=== PATIENT | male | born 1955 | race Caucasian/White ===

== ENCOUNTER 2019-10-20 07:00 | Outpatient (CLI) | payer MEDICARE, SELFPAY ==
--- NOTE | 2019-10-20 07:22 | ECG_ITS ---
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 Interpretive Statements NAME OF STUDY: EXERCISE SESTAMIBI STRESS TEST INDICATION: Chest Pain Baseline blood pressure of 143/103 mm Hg, heart rate of 76 beats per minute and oxygen saturation of 98%. EKG showed normal sinus rhythm, normal axis with normal ST-Ts. The patient exercised for 5 minutes 2 seconds on a standard Elmer protocol. Patient attained a maximum heart rate of 135 beats per minute(86 % of the maximum predicted heart rate) with a blood pressure at the peak exercise of 188/99 mm Hg and oxygen saturation 96%. The EKG at the peak exercise revealed sinus tachycardia with no significant ST-T wave changes. Patient did not have any chest pain or any significant arrhythmis with the exercise During the recovery phase, there were no new changes. Blood pressure at the end of the recovery phase was 166/106 mm Hg with a heart rate of 102 beats per minute and oxygen saturation 97%. CONCLUSION: 1. Normal EKG response to treadmill exercise. 2. No exercise-induced chest pain or cardiac arrhythmia 3. Decreased exercise tolerance, attained a maximum of 7 METs. Maximum VO2 of 24.5 mL/kg/min. 4. Baseline hypertension with normal response to exercise. 5. Perfusion scan will be documented separately. Electronically Signed On 10-20-2019 14:28:38 CDT by Zoey Koch M.D. [id number]
--- NOTE | 2019-10-20 07:22 | NMCV_ITS ---
NM charu perf SPECT r/s* [id number] Peewee Phillips Age: 63 Gender: M : 1955 Exam Date: 10/20/2019 08:10 Ordering Phys: Canelo Boone Technologist: PARAM West Exam Location: [facility] Indications: CHEST PAIN STRESS TEST [facility] IMAGE PROTOCOL Rest/Stress 1 Radiopharmaceutical Dose (mCi) Administration Site Administered by Rest: Tc-99m 10.9 IV PARAM Ramirez Sestamibi Stress:Tc-99m 32.9 IV PARAM West Sestamimyron Rest: 20-Oct-2019 60 Discovery 630 Stress: 20-Oct-2019 30 Discovery 630 Radiopharmaceutical was injected at 85 % maximum heart rate. Images obtained in supine and prone position. SPECT RESULTS Technical Quality: Excellent Raw Data Analysis: Normal Image Corrections: No attenuation or motion correction applied Summed Stress Score: 0 Summed Rest Score: 1 Summed Difference Score: 0 PERFUSION FINDINGS Very small size perfusion abnormality of mild severity of mid inferior wall with improved tracer uptake on stress images. This is suggestive of attenuation artifact. FUNCTIONAL RESULTS (calculated via Gated SPECT) Stress Image LV EF (%): 52 Stress EDV (mL):85 TID: 1.05 Stress ESV (mL):41 FUNCTIONAL FINDINGS: The left ventricle is normal in size. Transient Ischemia Dilatation of 1.1. There is normal left ventricular systolic function. The left ventricular ejection fraction is normal with a value of 52%. There is normal left ventricular wall thickening. Normal end-diastolic and end-systolic volumes. IMPRESSIONS 1. Myocardial perfusion imaging is normal. 2. Overall left ventricular systolic function is normal without regional wall motion abnormalities. 3. The left ventricular ejection fraction is normal with a value of 52%. 4. This study suggests a low likelihood of angiographically significant coronary artery disease. 5. EKG portion of the study will be reported separately. Zoey Koch MD (Electronically Signed) Final Date: 20 October 2019 14:32 S
[2019-10-20 07:23] VITALS: BMI 26.4
[2019-10-20 09:16] VITALS: BP 166/106; PULSE 96
== END 2019-10-20 07:01 | disposition home or self-care (01) ==
LOC: RAD 07:01
PROVIDERS: PCP Physician Assistant Medical; Visit Provider Family Medicine
DX: R07.9 Chest pain, unspecified (principal)
CPT/HCPCS: 78452; 93017; A9500

== ENCOUNTER → 2021-08-25 10:01 | Outpatient (BNVA) | payer MEDICARE, SELFPAY | PROVIDERS: PCP Nurse Practitioner Family; Visit Provider Surgery | DX: R10.30 Lower abdominal pain, unspecified (principal) | CPT/HCPCS: 99203 ==

== ENCOUNTER 2021-10-24 06:00 | Day surgery (SDC) | payer MEDICARE, MEDICAID, SELFPAY ==
[2021-10-22 08:26] VITALS: BMI 19.5
--- NOTE | 2021-10-24 06:15 | P.HP_ITS ---
Same Day Surgery H&P Indication for Procedure/HPI DATE OF PROCEDURE: October 24, 2021 CHIEF COMPLAINT/INDICATIONFOR SURGICAL PROCEDURE: Abdominal pain PREOP DIAGNOSIS: Lower abdominal pain PLANNED PROCEDURE: Operation Date: 10/24/21 07:00 Proposed Procedures p Colonoscopy 05980/R10.9(Not Applicable) - Ibrahima Campos MD 08/25/2021 This is a pleasant 65 years old gentleman comes today to my practice with history of lower abdominal pain, per primary care provider note that shows right lower quadrant abdominal pain and on the working diagnosis of the CT scan of the abdomen pelvis that was obtained it describes left lower abdominal pain is the indication of the CT scan.? Patient reports currently no pain and the CT scan did show fatty liver and right kidney stones, patient comes today escorted by one of his neighbors and he does not give much of a history and apparently his legal guardian is Mr. Chong Harmon.? Patient is referred to me for further evaluation and potential diagnostic colonoscopy.? There is no evidence of bleeding per rectum or history of colon cancer and patient had a previous colonoscopy and it does not show per records what were the findings. CT scan of the abdomen pelvis was done back in May 2021 concerning for diverticulitis. Interim history 10/24/2021 Patient comes today for diagnostic colonoscopy and informed consent is obtained from Chong Harmon legal guardian,over the phone ROS All systems have been reviewed negative except as for the above or per problem list. Medications/Allergies* Home Medications Medication Instructions Recorded Confirmed Type baclofen 10 mg tablet 10 mg PO TID 08/25/21 10/24/21 History diclofenac sodium 75 mg 75 mg PO BID 08/25/21 10/24/21 History tablet,delayed release dicyclomine 10 mg capsule 10 mg PO QID 08/25/21 10/24/21 History gabapentin 100 mg capsule 100 mg PO TID 08/25/21 10/24/21 History hydrochlorothiazide 12.5 mg tablet 12.5 mg PO DAILY 08/25/21 10/24/21 History hydrocortisone 1 % topical cream 1 applic [place] TID g 08/25/21 10/24/21 History with perineal applicator ibuprofen 400 mg tablet 400 mg PO Q6H 08/25/21 10/24/21 History insulin glargine 100 unit/mL 10 unit SUBCUT DAILY ml 08/25/21 10/24/21 History subcutaneous solution (Lantus U-100 Insulin) olmesartan 40 mg tablet (Benicar) 40 mg PO DAILY 08/25/21 10/24/21 History simvastatin 20 mg tablet 20 mg PO DAILY 08/25/21 10/24/21 History Allergies/Adverse Reactions Allergy/AdvReac Type Severity Reaction Status Date / Time latex Allergy Unknown ALGY-Rash Verified 10/24/21 07:22 Penicillins Allergy Unknown ALGY-Rash Verified 10/24/21 07:22 Pertinent History/Comorbid Conditions* Social History Smoking and tobacco status: never smoked Pertinent Exam Findings alert, regular rate & rhythm and procedure specific exam findings (Abdominal examination nontender nondistended soft) Recommendations Surgery/Procedure today (Colonoscopy with possible biopsy) Coding Level of Care Code Acute 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
[2021-10-24 06:23] VITALS: BP 154/108; PULSE 98; RESP 18; TEMP 36.2; O2SAT 97
--- NOTE | 2021-10-24 07:46 | ANES.PREANE2 ---
Pre-Anesthetic Assessment Height/Weight: Height 1.7 m Weight 56.699 kg Temp Pulse Resp BP Pulse Ox 97.1 F L 98 18 154/108 97 10/24/21 06:23 10/24/21 06:23 10/24/21 06:23 10/24/21 06:23 10/24/21 06:23 Preop Diagnosis: Lower abdominal pain Operation Date: 10/24/21 07:00 Proposed Procedures p Colonoscopy 12392/R10.9(Not Applicable) - Ibrahima Campos MD Familial anesthetic complications: None Was Beta Suzette taken within 24 hours: N/A Was Clonidine taken within 24 hours: N/A Last intake: Intake Last Liquid Date 10/23/21 Last Liquid Time 20:00 Last Solid Date 10/23/21 Last Solid Time 10:00 Social No alcohol and No tobacco Exam alert, oriented x 3 and regular rate & rhythm diminished breath sounds on right Airway Submandibular: within normal limits Cervical ROM: Other (Limited ROM) Mallampati: Class IV Comments: Comments: Missing upper lateral left incisor, poor dentition History/ROS No significant complaints Pulmonary None reported CV/HEM Hypertension None reported Hepatic None reported GI Gastroesophageal Reflux Disease Metabolic Diabetes Mellitus and None reported abdominal paint Musc/skel None reported Anesthetic Plan ASA status: 2 Anesthesia: Anesthesia Evaluation and MAC Risk of > 500 ml blood loss (7ml/kg in children): No Medications/Allergies Home Medications Medication Instructions Recorded Confirmed Last Taken Type baclofen 10 mg tablet 10 mg PO TID 08/25/21 10/24/21 10/23/21 History diclofenac sodium 75 mg 75 mg PO BID 08/25/21 10/24/21 Unknown History tablet,delayed release dicyclomine 10 mg capsule 10 mg PO QID 08/25/21 10/24/21 10/22/21 History gabapentin 100 mg capsule 100 mg PO TID 08/25/21 10/24/21 10/22/21 History hydrochlorothiazide 12.5 mg tablet 12.5 mg PO DAILY 08/25/21 10/24/21 10/22/21 History hydrocortisone 1 % topical cream 1 applic [place] TID g 08/25/21 10/24/21 Unknown History with perineal applicator ibuprofen 400 mg tablet 400 mg PO Q6H 08/25/21 10/24/21 Unknown History insulin glargine 100 unit/mL 10 unit SUBCUT DAILY ml 08/25/21 10/24/21 10/23/21 History subcutaneous solution (Lantus U-100 Insulin) olmesartan 40 mg tablet (Benicar) 40 mg PO DAILY 08/25/21 10/24/21 10/22/21 History simvastatin 20 mg tablet 20 mg PO DAILY 08/25/21 10/24/21 10/22/21 History Allergies Allergy/AdvReac Type Severity Reaction Status Date / Time latex Allergy Unknown ALGY-Rash Verified 10/24/21 07:22 Penicillins Allergy Unknown ALGY-Rash Verified 10/24/21 07:22 PFS Anesthesia Social History Smoking and tobacco status: never smoked Data Anesthesia Cardiac Studies: Sestamibi Stress Test (Cardiology) 10/20/19
[2021-10-24] MEDS: sodium chloride 0.9% 1,000 ML 30 ML IV (08:19)
[2021-10-24 09:07] VITALS: BP 124/82; PULSE 76; RESP 16; TEMP 36.2; O2SAT 93
[2021-10-24 09:16] VITALS: BP 124/96; PULSE 80; RESP 16; O2SAT 95
--- NOTE | 2021-10-24 11:53 | ANE.PACU2 ---
Inpatient post-anesthesia follow up: Airway intact: Yes Vital signs: Temperature 97.2 F Pulse Rate 80 Respiratory Rate 16 Blood Pressure 124/96 Pulse Oximetry 95 Oxygen Delivery Me thod Room Air Oxygen Flow Rate 3 Fraction of Inspir ed Oxygen Hydration adequate: Yes Nausea and vomiting: No Pain level: 1 Mental status: Baseline
== END 2021-10-24 09:33 | disposition home or self-care (01) ==
PROVIDERS: PCP Nurse Practitioner Family; Visit Provider Surgery
PROC: 0DJD8ZZ Inspection of Lower Intestinal Tract, Via Natural or Artificial Opening Endoscopic (ICD-10-PCS; CPT 45378; principal; 2021-10-24 07:00)
DX: R10.9 Unspecified abdominal pain (principal); I10 Essential (primary) hypertension; K21.9 Gastro-esophageal reflux disease without esophagitis; E11.9 Type 2 diabetes mellitus without complications
CPT/HCPCS: 45378; J2704; J7030

== ENCOUNTER → 2021-12-26 10:09 | Outpatient (BNVA) | payer MEDICARE, SELFPAY | PROVIDERS: PCP Nurse Practitioner Family; Referring Provider Nurse Practitioner Family; Visit Provider Nurse Practitioner Family | DX: M25.512 Pain in left shoulder (principal) | CPT/HCPCS: 99213; 99214 ==

== ENCOUNTER 2022-11-17 12:42 | Emergency (ER) | payer MEDICARE, MEDICAID, SELFPAY ==
[2022-11-17 12:44] VITALS: BP 137/89; PULSE 87; RESP 18; TEMP 36.9; O2SAT 92; BMI 31.3
--- NOTE | 2022-11-17 12:48 | ECG_ITS ---
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 Measurements Intervals [place] Rate: 88 P: 24 WI: 160 QRS: 13 QRSD: 88 T: 17 QT: 352 QTc: 427 Interpretive Statements SINUS RHYTHM Compared to ECG 11/23/2016 15:11:57 No significant changes Electronically Signed On 11-17-2022 20:12:53 CDT by Zoey Koch M.D. [email or web address] river county hospitalApptimizeuniversity hospitals par[email or web address]/store/NU/[id number] f
--- NOTE | 2022-11-17 12:48 | XRR_ITS ---
PROCEDURE INFORMATION: Exam: XR Chest Exam date and time: 11/17/2022 1:08 PM Age: 66 years old Clinical indication: Pain; Angina pectoris; Additional info: Chest pain TECHNIQUE: Imaging protocol: Radiologic exam of the chest. Views: 1 view. COMPARISON: 1. CR XR chest 1V [id number] 11/23/2016 12:33 PM 2. CR XR chest 2V* [id number] 06/23/2016 12:55 PM 3. CR XR chest 1V [id number] 05/18/2016 8:55 AM FINDINGS: Lungs: Pulmonary hypoinflation with bronchovascular crowding. Mild bibasilar atelectasis. Hazy increased attenuation at the left lower lung zone with preservation of the hemidiaphragm. Pulmonary vascular congestion. Pleural spaces: Unremarkable. No pleural effusion. No pneumothorax. Heart/Mediastinum: Widening of the cardiomediastinal silhouette. Bones/joints: Unremarkable. XR/XR chest 1V portable [id number] IMPRESSION: 1. Hazy left lower lung zone increased attenuation that may represent atelectasis or developing pneumonia. 2. Widening of the cardiomediastinal silhouette and pulmonary vascular congestion may be on the basis of pulmonary hypoinflation and AP technique.
--- NOTE | 2022-11-17 13:00 | PC.NURSE ---
Dr ordered asprin to be given. after documenting pt stated he already took asprin. Uncharted the asprin and wasted the medication.
[2022-11-17 13:05] LABS: Basophils # 0.1 10^3/uL (0.0-0.1); Basophils % 0.6 %; Eosinophils # 0.2 10^3/uL (0.0-0.8); Eosinophils % 2.2 %; Hematocrit 41.3 % (42.0-52.0); Hemoglobin 13.7 g/dL (11.7-16.6); Lymphocytes # 3.1 10^3/uL (0.8-4.8); Lymphocytes % 36.3 %; Mean Corpuscular HGB Conc 33.2 g/dL (30.0-36.0); Mean Corpuscular Hemoglobin 29.8 pg (28.0-34.0); Mean Platelet Volume 11.4 fL (7.4-10.4); Monocytes # 0.7 10^3/uL (0.2-0.9); Monocytes % 7.8 %; Neutrophils # 4.45 10^3/uL (1.8-7.7); Neutrophils % 52.6 %; Nucleated Red Blood Cells % 0 %; Platelet Count 202 10^3/cmm (130-400); Red Blood Count 4.59 10^6/uL (4.1-5.3); Red Cell Distribution Width 14.4 % (12.1-15.1); White Blood Count 8.5 10^3/uL (4.0-10.0)
[2022-11-17 13:20] VITALS: BP 137/89; PULSE 86; RESP 18; O2SAT 97
[2022-11-17 13:33] LABS: Alanine Aminotransferase 52 U/L (0-41); Albumin Level 4.7 g/dL (3.5-5.2); Alkaline Phosphatase 81 U/L (40-130); Anion Gap 17.4 (5-19); Aspartate Amino Transferase 32 U/L (0-40); Blood Urea Nitrogen 19 mg/dL (8-23); Calcium 9.4 mg/dL (8.5-10.5); Carbon Dioxide 23 mmol/L (22-29); Chloride 106 mmol/L (98-107); Creatinine Clr Calc Pharmacy 85.5578; Globulin 2.5 g/dL (1.3-4.6); Glomerular Filtration Rate 84.2 mL/min (90-130); Glucose 184 mg/dL (65-115); Osmolality Calculated 301 mOsm/kg (285-295); Potassium 4.4 mmol/L (3.5-5.1); Sodium 142 mmol/L (136-145); Total Bilirubin 0.4 mg/dL (0.15-1.2); Total Protein 7.2 g/dL (6.6-8.7)
[2022-11-17 13:35] LABS: Troponin(5th) Baseline 17 ng/L (0-15)
--- NOTE | 2022-11-17 14:11 | ED_ITS ---
HPI - Chest Pain General: Chief Complaint: Chest Pain Stated Complaint: Chest Pain Time Seen by Provider: 11/17/22 12:45 Source: patient Mode of arrival: ambulatory History of Present Illness: 66-year-old male presents emergency room complaint of chest pain that began around noon and is intermittent. Pain has resolved by the time he arrived here. He was given nitro and aspirin in route. No radiation of the pain no associate d shortness of breath. No diaphoresis. MD complaint: chest pain Onset (ago): hour(s) Timing of current episode: episodic Prior episodes: Yes Onset: during rest Pain location: substernal Pain radiation: none Quality: tightness and aching Relieving factors: nothing Exacerbating factors: nothing Associated symptoms: Deny abdominal pain, diaphoresis, dyspnea, fever(s), leg edema, nausea, palpitations, sense of impending doom, syncope or vomiting Treatment prior to arrival: none Review of Systems Const: Denies: fever(s) or diaphoresis ENMT: Denies: throat pain, ear or mastoid pain, nasal discharge or nasal congestion Card: Denies: palpitations or syncope Resp: Denies: dyspnea GI: Denies: abdominal pain, nausea or vomiting : Denies: flank pain, dysuria, urinary frequency or urinary urgency Skin/Breast: Denies: rash or pruritus PFSH ED PFSH: Social History Smoking and tobacco status: never smoked Physical Exam Const: COMMON NORMALS: no acute distress GENERAL APPEARANCE: cooperative and comfortable ORIENTATION/CONSCIOUSNESS: Yes awake, Yes oriented to person, Yes oriented to place and Yes oriented to time HENMT: COMMON NORMALS: normocephalic, atraumatic and hearing grossly normal bilaterally HEAD & SCALP: normocephalic and atraumatic Resp: COMMON NORMALS: normal respiratory effort, No retractions, No use of ac cessory muscles and clear to auscultation bilaterally AUSCULTATION: clear to auscultation bilaterally Cardio: COMMON NORMALS: regular rate, regular rhythm and No murmurs present (Cardio) RATE: regular rate RHYTHM: regular rhythm GI: COMMON NORMALS: Soft to palpation and No hepatosplenomegaly present AUSCULTATION: Yes normoactive bowel sounds PALPATION: Yes Soft to palpation, No Tenderness to palpation present (GI), No Guarding due to palpation present ( GI) and Yes No hepatosplenomegaly present Extremity: COMMON NORMALS: normal to inspection, capillary refill normal, no clubbing, cyanosis or edema, no calf tenderness and no pedal edema Neuro: SENSORIUM/ORIENTATION: Yes oriented to person, Yes oriented to place and Yes oriented to time Skin: COMMON NORMALS: no rashes or lesions noted GENERAL SKIN EXAM: no rashes or lesions noted Course Vital Signs: Vital signs: Vital Signs Temperature 98.4 F 11/17/22 12:44 Pulse Rate 67 11/17/22 19:52 Respiratory Rate 18 11/17/22 19:52 Blood Pressure 156/94 11/17/22 19:52 Pulse Oximetry 99 11/17/22 19:52 Oxygen Delivery Me thod Nasal Cannula 11/17/22 19:30 Oxygen Flow Rate 1.5 11/17/22 19:30 MDM - Chest Pain Medical Decision Making EKG and cardiac enzymes show no acute changes. Patient's symptoms did resolve prior to arrival. He reported pain and already improved before he got the nitro. He denies any fever sweats or chills or cough. Observe for now set up for outpatient stress test return if has further problems. We will start him on isosorbide mononitrate 30 mg daily as well as aspirin return if has recurrent chest pain Medical Records I reviewed the patient's medical records. Lab Data I reviewed the patient's lab results. 11/17/22 12:57 11/17/22 12:57 Radiology Impressions Chest X-Ray 11/17/22 12:48 IMPRESSION: 1. Hazy left lower lung zone increased attenuation that may represent atelectasis or developing pneumonia. 2. Widening of the cardiomediastinal silhouette and pulmonary vascular congestion may be on the basis of pulmonary hypoinflation and AP technique. Laboratory Results WBC 8.5 10^3/uL (4.0-10.0) 11/17/22 12:57 RBC 4.59 10^6/uL (4.1-5.3) 11/17/22 12:57 Hgb 13.7 g/dL (11.7-16.6) 11/17/22 12:57 Hct 41.3 % (42.0-52.0) L 11/17/22 12:57 MCV 90.0 fl (80-94) 11/17/22 12:57 MCH 29.8 pg (28.0-34.0) 11/17/22 12:57 MCHC 33.2 g/dL (30.0-36.0) 11/17/22 12:57 RDW 14.4 % (12.1-15.1) 11/17/22 12:57 Plt Count 202 10^3/cmm (130-400) 11/17/22 12:57 MPV 11.4 fL (7.4-10.4) H 11/17/22 12:57 Neut % (Auto) 52.6 % 11/17/22 12:57 Lymph % (Auto) 36.3 % 11/17/22 12:57 [place] % (Auto) 7.8 % 11/17/22 12:57 Eos % (Auto) 2.2 % 11/17/22 12:57 Baso % (Auto) 0.6 % 11/17/22 12:57 Neut # (Auto) 4.45 10^3/uL (1.8-7.7) 11/17/22 12:57 Lymph # (Auto) 3.1 10^3/uL (0.8-4.8) 11/17/22 12:57 [place] # (Auto) 0.7 10^3/uL (0.2-0.9) 11/17/22 12:57 Eos # (Auto) 0.2 10^3/uL (0.0-0.8) 11/17/22 12:57 Baso # (Auto) 0.1 10^3/uL (0.0-0.1) 11/17/22 12:57 Nucleated RBC % (auto) 0 % 11/17/22 12:57 Nucleated RBCs # 0.0 /100WBC 11/17/22 12:57 Sodium 142 mmol/L (136-145) 11/17/22 12:57 Potassium 4.4 mmol/L (3.5-5.1) 11/17/22 12:57 Chloride 106 mmol/L (98-107) 11/17/22 12:57 Carbon Dioxide 23 mmol/L (22-29) 11/17/22 12:57 Anion Gap 17.4 (5-19) 11/17/22 12:57 BUN 19 mg/dL (8-23) 11/17/22 12:57 Creatinine 0.9 mg/dL (0.7-1.2) 11/17/22 12:57 GFR Calculation 84.2 mL/min (90-130) L 11/17/22 12:57 Glucose 184 mg/dL (65-115) H 11/17/22 12:57 Calculated Osmolality 301 mOsm/kg (285-295) H 11/17/22 12:57 Calcium 9.4 mg/dL (8.5-10.5) 11/17/22 12:57 Total Bilirubin 0.4 mg/dL (0.15-1.2) 11/17/22 12:57 AST 32 U/L (0-40) 11/17/22 12:57 ALT 52 U/L (0-41) H 11/17/22 12:57 Alkaline Phosphatase 81 U/L (40-130) 11/17/22 12:57 Troponin T Baseline 17 ng/L (0-15) H 11/17/22 12:57 Troponin T 120 Minute 13.70 ng/L (0-15) 11/17/22 14:33 Delta Troponin T -3.3 ABS# (0-10) L 11/17/22 14:33 Troponin T Hi Sens 6Hr 13.17 ng/L (0-15) 11/17/22 19:02 Troponin T Hi Sens 6Hr Delta -3.83 ng/L (0-12) L 11/17/22 19:02 Total Protein 7.2 g/dL (6.6-8.7) 11/17/22 12:57 Albumin 4.7 g/dL (3.5-5.2) 11/17/22 12:57 Globulin 2.5 g/dL (1.3-4.6) 11/17/22 12:57 Discharge Plan Discharge Patient Disposition: Home Clinical Impression: Atypical chest pain Condition: Stable Prescriptions: New isosorbide mononitrate 30 mg tablet extended release 24 hr 30 mg PO DAILY Qty: 30 0RF aspirin 81 mg tablet,delayed release (DR/EC) 81 mg PO DAILY Qty: 30 0RF No Action Lantus U-100 Insulin 100 unit/mL solution 15 unit SUBCUT DAILY baclofen 10 mg tablet 10 mg PO TID dicyclomine 10 mg capsule 10 mg PO QID gabapentin 100 mg capsule 100 mg PO TID hydrochlorothiazide 12.5 mg tablet 12.5 mg PO DAILY ibuprofen 400 mg tablet 400 mg PO Q6H olmesartan [Benicar] 40 mg tablet 40 mg PO DAILY simvastatin 20 mg tablet 20 mg PO DAILY metformin 500 mg tablet 500 mg PO BID hydrocodone-acetaminophen 7.5-325 mg tablet 1 tab PO BID PRN (Reason: Pain) levofloxacin 750 mg tablet 750 mg PO DAILY 7 Days Qty: 7 0RF Discharge Orders: Discharge ED (Routine); Ordered 11/17/22 Ordered By: Tanmay Maciel Referrals: Cristiana Garcia FNP [Primary Care Provider] - Patient Instructions: Opioid Safety, Pain Management Activity Restrictions/Additional Instructions: You were seen today for chest pain. Your cardiac enzymes and EKG did not show any acute changes recommend that you take isosorbide mononitrate 30 mg daily and a baby aspirin daily Case management make arrangements for an outpatient stress test. If you have recurrence of symptoms return to the emergency room. Coding Level of Care Code ED Horseradish Grinder for Lori Narvaez
[2022-11-17 14:34] VITALS: BP 137/89; PULSE 73; RESP 18; O2SAT 97
--- NOTE | 2022-11-17 14:48 | ECG_ITS ---
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 Measurements Intervals [place] Rate: 67 P: 31 NC: 173 QRS: 26 QRSD: 87 T: 29 QT: 397 QTc: 421 Interpretive Statements SINUS RHYTHM Compared to ECG 11/17/2022 12:48:33 No significant changes Electronically Signed On 11-17-2022 20:15:46 CDT by Zoey Koch M.D. [email or web address] general [email or web address] medical [facility].[employer]/store/OM/[id number]/[id number]
[2022-11-17 15:11] LABS: Troponin 5 2HR Delta -3.3 ABS# (0-10)
[2022-11-17 16:55] VITALS: BP 137/89; PULSE 69; O2SAT 99
[2022-11-17 19:29] LABS: Troponin 5 6HR 13.17 ng/L (0-15)
[2022-11-17 19:30] VITALS: BP 129/88; PULSE 88; RESP 18; O2SAT 98
[2022-11-17 19:45] LABS: Troponin 5 6HR Delta -3.83 ng/L (0-12)
[2022-11-17 19:52] VITALS: BP 156/94; PULSE 67; RESP 18; O2SAT 99
--- NOTE | 2022-11-18 10:21 | DCPLANNER ---
Addendum entered by Clarissa Trinidad 12/17/22 10:34: Patient did not attend stress test Addendum entered by Clarissa Trinidad 12/09/22 11:30: Patient has a follow up appointment scheduled for Wednesday, December 16, 2022 at 2:00 for a stress test. Original Note: public housing manager had message to schedule an outpatient stress test for patient. public housing manager faxed signed order to centralized scheduling, who will call patient with appointment information.
== END 2022-11-17 19:35 | disposition home or self-care (01) ==
PROVIDERS: Emergency Provider Family Medicine; PCP Nurse Practitioner Family
DX: R07.89 Other chest pain (principal); Z79.84 Long term (current) use of oral hypoglycemic drugs; Z79.4 Long term (current) use of insulin
CPT/HCPCS: 36415; 71045; 80053; 84484; 85025; 93005; 99285

== ENCOUNTER 2022-11-19 10:34 | Emergency (ER) | payer MEDICARE, MEDICAID, SELFPAY ==
--- NOTE | 2022-11-19 10:38 | XR_ITS ---
WS: [id number] Exam: XR chest 1V portable [id number] Date/Time of Exam: 11/19/2022 10:54 AM Reason For Exam: chest pain Comparison 11/17/2022. The heart is enlarged. There appears to be some infiltrate in the lingula along the left heart border . The right lung is clear. No pneumothorax or pleural effusion. The mediastinum is normal in contour. Regional bony structures are intact. XR/XR chest 1V portable [id number] IMPRESSION: 1. Mild infiltrate in the region of the lingula. 2. Cardiac enlargement.
[2022-11-19 10:42] VITALS: BP 154/92; PULSE 99; RESP 18; TEMP 36.9; O2SAT 92
[2022-11-19 10:51] LABS: Basophils % 0.5 %; Eosinophils # 0.1 10^3/uL (0.0-0.8); Eosinophils % 1.9 %; Hemoglobin 13.4 g/dL (11.7-16.6); Lymphocytes # 2.2 10^3/uL (0.8-4.8); Lymphocytes % 34.7 %; Mean Corpuscular HGB Conc 33.5 g/dL (30.0-36.0); Mean Corpuscular Hemoglobin 30.1 pg (28.0-34.0); Mean Corpuscular Volume 89.9 fl (80-94); Mean Platelet Volume 11.3 fL (7.4-10.4); Monocytes # 0.5 10^3/uL (0.2-0.9); Monocytes % 7.8 %; Neutrophils # 3.45 10^3/uL (1.8-7.7); Neutrophils % 54.6 %; Nucleated Red Blood Cells % 0 %; Platelet Count 194 10^3/cmm (130-400); Red Blood Count 4.45 10^6/uL (4.1-5.3); White Blood Count 6.3 10^3/uL (4.0-10.0)
[2022-11-19 11:12] LABS: Alanine Aminotransferase 45 U/L (0-41); Albumin Level 4.5 g/dL (3.5-5.2); Alkaline Phosphatase 82 U/L (40-130); Anion Gap 17.1 (5-19); Aspartate Amino Transferase 32 U/L (0-40); Blood Urea Nitrogen 17 mg/dL (8-23); Calcium 9.4 mg/dL (8.5-10.5); Carbon Dioxide 23 mmol/L (22-29); Chloride 103 mmol/L (98-107); Globulin 2.5 g/dL (1.3-4.6); Glomerular Filtration Rate 84.2 mL/min (90-130); Glucose 148 mg/dL (65-115); Osmolality Calculated 292 mOsm/kg (285-295); Potassium 4.1 mmol/L (3.5-5.1); Sodium 139 mmol/L (136-145); Total Bilirubin 0.5 mg/dL (0.15-1.2)
[2022-11-19 11:14] LABS: Troponin(5th) Baseline 12 ng/L (0-15)
--- NOTE | 2022-11-19 11:36 | ED_ITS ---
HPI - Chest Pain General: Chief Complaint: Chest Pain Stated Complaint: chest pain Time Seen by Provider: 11/19/22 10:37 Source: patient Mode of arrival: ambulatory History of Present Illness: 66-year-old male presents emergency room with complaint of chest discomfort again. Slight cough nonproductive no shortness of breath. He was seen 2 days ago troponins were negative chest x-ray there is a question of early infiltrate he had no respiratory symptoms at the time. He states his chest discomfort is unchanged from the last time he was seen has been ongoing for over a week now. MD complaint: chest pain Onset (ago): week(s) (1) Timing of current episode: episodic Prior episodes: Yes Onset: during rest Pain location: substernal Pain radiation: none Severity: mild Quality: aching Relieving factors: nothing Exacerbating factors: nothing Associated symptoms: Deny abdominal pain, dyspnea, fever(s), nausea, palpitations or vomiting Review of Systems Const: Denies: fever(s), chills, fatigue or malaise ENMT: Denies: throat pain, ear or mastoid pain, nasal discharge or nasal congestion Card: Denies: chest pain, palpitations, irregular heart rhythm, edema, dyspnea on exertion or orthopnea Resp: Denies: dyspnea, productive cough or non-productive cough GI: Denies: abdominal pain, nausea, vomiting, hematemesis, coffee ground emesis, diarrhea, constipation, bloating, hematochezia or melena : Denies: flank pain, dysuria, urinary frequency or urinary urgency Musc: Denies: neck pain or back pain Skin/Breast: Denies: rash or pruritus PFS ED PFSH: Social History Smoking and tobacco status: never smoked Physical Exam Const: GENERAL APPEARANCE: cooperative and comfortable ORIENTATION/CONS CIOUSNESS: Yes awake, Yes oriented to person, Yes oriented to place and Yes oriented to time HENMT: COMMON NORMALS: normocephalic, atraumatic and hearing grossly normal bilaterally HEAD & SCALP: normocephalic and atraumatic Resp: COMMON NORMALS: normal respiratory effort, No retractions and No use of accessory muscles AUSCULTATION: rhonchi left lower Cardio: COMMON NORMALS: regular rate, regular rhythm and No murmurs present (Cardio) RATE: regular rate RHYTHM: regular rhythm GI: COMMON NORMALS: Soft to palpation and No hepatosplenomegaly present AUSCULTATION: Yes normoactive bowel sounds PALPATION: Yes Soft to palpation, No Tenderness to palpation present (GI), No Guarding due to palpation present (GI) and Yes No hepatosplenomegaly present Extremity: COMMON NORMALS: normal to inspection, capillary refill normal, no clubbing, cyanosis or edema, no calf tenderness and no pedal edema Neuro: SENSORIUM/ORIENTATION: Yes oriented to person, Yes oriented to place and Yes oriented to time Skin: COMMON NORMALS: no rashes or lesions noted GENERAL SKIN EXAM: no rashes or lesions noted Course Vital Signs: Vital signs: Vital Signs Temperature 98.4 F 11/19/22 10:42 Pulse Rate 99 11/19/22 10:42 Respiratory Rate 18 11/19/22 10:42 Blood Pressure 154/92 11/19/22 10:42 Pulse Oximetry 92 11/19/22 10:42 Oxygen Delivery Me thod Room Air 11/19/22 10:42 MDM - Chest Pain Medical Decision Making Patient returns complaining of chest pain troponin is normal. On his previous chest x-ray there is a question of possible early infiltrate but he had no cough or shortness of breath. On today's chest x-ray that has increased in prominence we will treat him with oral antibiotics discharge patient home have him follow- up with his primary care doctor. Medical Records I reviewed the patient's medical records. Lab Data I reviewed the patient's lab results. 11/19/22 09:53 11/19/22 09:53 Radiology Impressions Chest X-Ray 11/19/22 10:38 IMPRESSION: 1. Mild infiltrate in the region of the lingula. 2. Cardiac enlargement. Laboratory Results WBC 6.3 10^3/uL (4.0-10.0) 11/19/22 09:53 RBC 4.45 10^6/uL (4.1-5.3) 11/19/22 09:53 Hgb 13.4 g/dL (11.7-16.6) 11/19/22 09:53 Hct 40.0 % (42.0-52.0) L 11/19/22 09:53 MCV 89.9 fl (80-94) 11/19/22 09:53 MCH 30.1 pg (28.0-34.0) 11/19/22 09:53 MCHC 33.5 g/dL (30.0-36.0) 11/19/22 09:53 RDW 14.0 % (12.1-15.1) 11/19/22 09:53 Plt Count 194 10^3/cmm (130-400) 11/19/22 09:53 MPV 11.3 fL (7.4-10.4) H 11/19/22 09:53 Neut % (Auto) 54.6 % 11/19/22 09:53 Lymph % (Auto) 34.7 % 11/19/22 09:53 Lyman % (Auto) 7.8 % 11/19/22 09:53 Eos % (Auto) 1.9 % 11/19/22 09:53 Baso % (Auto) 0.5 % 11/19/22 09:53 Neut # (Auto) 3.45 10^3/uL (1.8-7.7) 11/19/22 09:53 Lymph # (Auto) 2.2 10^3/uL (0.8-4.8) 11/19/22 09:53 Lyman # (Auto) 0.5 10^3/uL (0.2-0.9) 11/19/22 09:53 Eos # (Auto) 0.1 10^3/uL (0.0-0.8) 11/19/22 09:53 Baso # (Auto) 0.0 10^3/uL (0.0-0.1) 11/19/22 09:53 Nucleated RBC % (auto) 0 % 11/19/22 09:53 Nucleated RBCs # 0.0 /100WBC 11/19/22 09:53 Sodium 139 mmol/L (136-145) 11/19/22 09:53 Potassium 4.1 mmol/L (3.5-5.1) 11/19/22 09:53 Chloride 103 mmol/L (98-107) 11/19/22 09:53 Carbon Dioxide 23 mmol/L (22-29) 11/19/22 09:53 Anion Gap 17.1 (5-19) 11/19/22 09:53 BUN 17 mg/dL (8-23) 11/19/22 09:53 Creatinine 0.9 mg/dL (0.7-1.2) 11/19/22 09:53 GFR Calculation 84.2 mL/min (90-130) L 11/19/22 09:53 Glucose 148 mg/dL (65-115) H 11/19/22 09:53 Calculated Osmolality 292 mOsm/kg (285-295) 11/19/22 09:53 Calcium 9.4 mg/dL (8.5-10.5) 11/19/22 09:53 Total Bilirubin 0.5 mg/dL (0.15-1.2) 11/19/22 09:53 AST 32 U/L (0-40) 11/19/22 09:53 ALT 45 U/L (0-41) H 11/19/22 09:53 Alkaline Phosphatase 82 U/L (40-130) 11/19/22 09:53 Troponin T Baseline 12 ng/L (0-15) 11/19/22 09:53 Total Protein 7.0 g/dL (6.6-8.7) 11/19/22 09:53 Albumin 4.5 g/dL (3.5-5.2) 11/19/22 09:53 Globulin 2.5 g/dL (1.3-4.6) 11/19/22 09:53 Discharge Plan Discharge Patient Disposition: Home Clinical Impression: Pneumonia Condition: Stable Prescriptions: New levofloxacin 750 mg tablet 750 mg PO DAILY 7 Days Qty: 7 0RF No Action Lantus U-100 Insulin 100 unit/mL solution 15 unit SUBCUT DAILY baclofen 10 mg tablet 10 mg PO TID dicyclomine 10 mg capsule 10 mg PO QID gabapentin 100 mg capsule 100 mg PO TID hydrochlorothiazide 12.5 mg tablet 12.5 mg PO DAILY ibuprofen 400 mg tablet 400 mg PO Q6H olmesartan [Benicar] 40 mg tablet 40 mg PO DAILY simvastatin 20 mg tablet 20 mg PO DAILY metformin 500 mg tablet 500 mg PO BID hydrocodone-acetaminophen 7.5-325 mg tablet 1 tab PO BID PRN (Reason: Pain) isosorbide mononitrate 30 mg tablet extended release 24 hr 30 mg PO DAILY Qty: 30 0RF aspirin 81 mg tablet,delayed release (DR/EC) 81 mg PO DAILY Qty: 30 0RF Discharge Orders: Discharge ED (Routine); Ordered 11/19/22 Ordered By: Tanmay Maciel Referrals: Cristiana Garcia FNP [Primary Care Provider] - Discharge Diet: Usual diet Discharge Activity: Increase activity as tolerated Patient Instructions: Opioid Safety, Pain Management Activity Restrictions/Additional Instructions: Your chest x-ray today showed a pneumonia. Recommend that you start oral antibiotics follow-up with your primary care doctor. 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
--- NOTE | 2022-11-19 12:02 | PC.NURSE ---
Phone call made to patient's guardian, Chong Merino, to let them know patient is being discharged. They are unable to provide a ride and asked that we set up a medicaid ride for him. Form filled out at this time and given to registration.
--- NOTE | 2022-11-19 12:38 | ECG_ITS ---
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 Measurements Intervals [place] Rate: 80 P: 25 [place]: 172 QRS: 22 QRSD: 90 T: -2 QT: 358 QTc: 413 Interpretive Statements SINUS RHYTHM MODERATE VOLTAGE CRITERIA FOR LVH, CONSIDER NORMAL VARIANT [MEETS CRITERIA IN ONE OF: R(aVL), S(V1), R(V5), R(V5/V6)+S(V1)] INFERIOR MYOCARDIAL INFARCTION , PROBABLY OLD [40+ ms Q WAVE AND/OR ST/T ABNORMALITY IN II/aVF] Compared to ECG 11/19/2022 10:48:48 No significant changes Electronically Signed On 11-19-2022 16:24:10 CDT by Zoey Koch M.D. [email or web address] [email or web address]/store/[id number]
[2022-11-19 12:44] LABS: Troponin 5 2HR 12.42 ng/L (0-15)
[2022-11-19 13:06] LABS: Troponin 5 2HR Delta 0.42 ABS# (0-10)
--- NOTE | 2022-11-19 15:31 | PC.NURSE ---
Pt still currently waiting on ride home. Pt denies any needs at this time.
[2022-11-19 15:53] VITALS: PULSE 86; O2SAT 94
--- NOTE | 2022-11-19 16:38 | ECG_ITS ---
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 Measurements Intervals [place] Rate: 97 P: 30 [place]: 165 QRS: 59 QRSD: 92 T: -3 QT: 340 QTc: 434 Interpretive Statements SINUS RHYTHM INFERIOR MYOCARDIAL INFARCTION , PROBABLY OLD [40+ ms Q WAVE AND/OR ST/T ABNORMALITY IN II/aVF] Compared to ECG 11/17/2022 15:19:30 Myocardial infarct finding now present Electronically Signed On 11-19-2022 12:31:13 CDT by Zoey Koch M.D. [email or web address].[employer]/store/[id number]
== END 2022-11-19 17:57 | disposition home or self-care (01) ==
PROVIDERS: Emergency Provider Family Medicine; PCP Nurse Practitioner Family
DX: J18.9 Pneumonia, unspecified organism (principal); Z79.82 Long term (current) use of aspirin; Z79.84 Long term (current) use of oral hypoglycemic drugs; Z79.4 Long term (current) use of insulin
CPT/HCPCS: 36415; 71045; 80053; 84484; 85025; 93005; 99285

== ENCOUNTER → 2023-01-11 09:44 | Outpatient (BNVA) | payer MEDICARE, MEDICAID, SELFPAY | PROVIDERS: PCP Nurse Practitioner Family; Referring Provider Registered Nurse; Visit Provider Anesthesiology Pain Medicine | DX: M51.16 Intervertebral disc disorders with radiculopathy, lumbar region; M47.816 Spondylosis without myelopathy or radiculopathy, lumbar region | CPT/HCPCS: 99204 ==

== ENCOUNTER 2023-02-04 12:05 | Emergency (ER) | payer MEDICARE, MEDICAID, SELFPAY ==
[2023-02-04 12:05] VITALS: BP 145/93; PULSE 70; RESP 14; TEMP 36.7; O2SAT 95; BMI 19.5
--- NOTE | 2023-02-04 12:08 | ECG_ITS ---
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 Measurements Intervals [place] Rate: 70 P: 24 [place]: 162 QRS: 11 QRSD: 93 T: 27 QT: 376 QTc: 408 Interpretive Statements SINUS RHYTHM Compared to ECG 11/19/2022 13:33:39 Myocardial infarct finding no longer present Electronically Signed On 02-04-2023 15:55:55 CDT by Paul Cavazos M.D. [email or web address] specialty [email or web address] - southeast [email or web address]/store/[id number]
--- NOTE | 2023-02-04 12:29 | XR_ITS ---
WS: [id number] EXAMINATION: XR chest 1V portable [id number] REASON FOR EXAM: Intermittent chest pain COMPARISON: 11/19/2022 ORDER DATE: 02/04/2023 12:37 PM TECHNIQUE: A single, portable frontal chest x-ray was obtained. X-RAY FINDINGS: The lungs are clear. There is chronic eventration or elevation of the right hemidiaphragm. Pleural sp aces are clear. No pleural effusions or pneumothorax. Cardiomediastinal silhouette is normal. No evidence for pulmonary edema. Soft tissue and osseous structures are unremarkable. No tubes or lines are present. IMPRESSION: Unremarkable frontal portable chest x-ray.
--- NOTE | 2023-02-04 12:32 | W.ED.CHESTPA ---
HPI - Chest Pain General: Chief Complaint: Chest Pain Stated Complaint: chest pain Time Seen by Provider: 02/04/23 12:09 Source: patient Mode of arrival: EMS Limitations: no limitations History of Present Illness: This 67-year-old male presents to the ER for evaluation of intermittent chest pain that started last night. Pain is sharp in nature, located in the sternal area with no radiation. Pain lasts for about 30 to 40 minutes and resolves spontaneously. There is no fever, nausea, vomiting or any other pertinent systemic symptoms. Currently, patient is pain-free. Review of Systems Const: Denies: chills, body aches or change in appetite Eyes: Denies: change in vision or eye discharge ENMT: Denies: throat pain, dental pain or nasal discharge Card: Reports: chest pain (intermittent); Denies: lightheadedness : Denies: dysuria Musc: Denies: neck pain or back pain Neuro: Denies: headache(s) or weakness in extremities Psych: Denies: depression Binh/Lymph: Denies: easy bruising All/Imm: Denies: urticaria, tongue swelling or facial swelling PFSH ED PFSH: Social History Smoking and tobacco status: never smoked Physical Exam Const: COMMON NORMALS: no acute distress, patient oriented x3, no limitations and alert HENMT: COMMON NORMALS: normocephalic HEAD & SCALP: normocephalic Eye: COMMON NORMALS: EOMs intact bilaterally Neck/C-Spine: COMMON NORMALS: full ROM and supple Chest: COMMONS NORMALS: normal inspection of the chest Resp: COMMON NORMALS: normal respiratory effort, No retractions, No use of accessory muscles and clear to auscultation bilaterally AUSCULTATION: clear to auscultation bilaterally Cardio: COMMON NORMALS: regular rate, regular rhythm and No murmurs present (Cardio) RATE: regular rate RHYTHM: regular rhythm GI: COMMON NORMALS: Normal to inspection, nondistended, normoactive bowel sounds present and non-tender : COMMON NORMALS: Yes no CVA tenderness BLADDER/KIDNEY EXAM: Yes no CVA tenderness Back/Pelvis: COMMON NORMALS: no CVA tenderness and no thoracic nor lumbar tenderness Extremity: GENERAL: Yes normal exam except as noted Neuro: COMMON NORMALS: patient oriented x3 and no focal motor deficits SENSORIUM/ORIENTATION: Yes alert Psych: COMMON NORMALS: mental status grossly normal and cooperative Course Vital Signs: Vital signs: Vital Signs Temperature 98.0 F 02/04/23 12:05 Pulse Rate 59 L 02/04/23 16:30 Respiratory Rate 21 H 02/04/23 16:30 Blood Pressure 145/93 02/04/23 16:30 Pulse Oximetry 95 02/04/23 16:30 Oxygen Delivery Me thod Room Air 02/04/23 16:30 MDM - Chest Pain Medical Decision Making Medical decision making: Patient's chest pain is intermittent and started yesterday. On ER arrival, he was pain-free and remained so throughout his stay. Initial troponin and repeat troponin are not indicative of an acute coronary syndrome. Patient is happy to go home. There is no indication for an emergent intervention at this time. However, he will need a stress test which can be arranged as outpatient through his primary care provider. Reasons to return were discussed. Patient verbalized understanding and agrees with the plan. Lab Data 02/04/23 12:48 02/04/23 12:48 Laboratory Results WBC 6.64 10^3/uL (3.29-11.43) 02/04/23 12:48 RBC 3.93 10^6/uL (3.85-5.65) 02/04/23 12:48 Hgb 12.30 g/dL (11.27-16.99) 02/04/23 12:48 Hct 36.3 % (37-53) L 02/04/23 12:48 MCV 92.4 fl (82-101) 02/04/23 12:48 MCH 31.3 pg (27-33) 02/04/23 12:48 MCHC 33.9 g/dL (30-55) 02/04/23 12:48 RDW 13.2 % (12.1-15.1) 02/04/23 12:48 Plt Count 154 10^3/cmm (157-399) L 02/04/23 12:48 MPV 11.6 fL (7.4-10.4) H 02/04/23 12:48 Neut % (Auto) 57.4 % 02/04/23 12:48 Lymph % (Auto) 35.5 % 02/04/23 12:48 Clark % (Auto) 5.4 % 02/04/23 12:48 Eos % (Auto) 0.6 % 02/04/23 12:48 Baso % (Auto) 0.6 % 02/04/23 12:48 Neut # (Auto) 3.81 10^3/uL (1.8-7.7) 02/04/23 12:48 Lymph # (Auto) 2.4 10^3/uL (0.8-4.8) 02/04/23 12:48 Clark # (Auto) 0.4 10^3/uL (0.2-0.9) 02/04/23 12:48 Eos # (Auto) 0.0 10^3/uL (0.0-0.8) 02/04/23 12:48 Baso # (Auto) 0.0 10^3/uL (0.0-0.1) 02/04/23 12:48 Nucleated RBC % (auto) 0 % 02/04/23 12:48 Nucleated RBCs # 0.0 /100WBC 02/04/23 12:48 Sodium 141 mmol/L (136-145) 02/04/23 12:48 Potassium 3.4 mmol/L (3.5-5.1) L 02/04/23 12:48 Chloride 103 mmol/L (98-107) 02/04/23 12:48 Carbon Dioxide 26 mmol/L (22-29) 02/04/23 12:48 Anion Gap 15.4 (5-19) 02/04/23 12:48 BUN 20 mg/dL (8-23) 02/04/23 12:48 Creatinine 0.9 mg/dL (0.7-1.2) 02/04/23 12:48 GFR Calculation 83.9 mL/min (90-130) L 02/04/23 12:48 Glucose 217 mg/dL (65-115) H 02/04/23 12:48 Calculated Osmolality 301 mOsm/kg (285-295) H 02/04/23 12:48 Calcium 9.0 mg/dL (8.5-10.5) 02/04/23 12:48 Total Bilirubin 0.4 mg/dL (0.15-1.2) 02/04/23 12:48 AST 21 U/L (0-40) 02/04/23 12:48 ALT 31 U/L (0-41) 02/04/23 12:48 Alkaline Phosphatase 71 U/L (40-130) 02/04/23 12:48 Troponin T Baseline 12 ng/L (0-15) 02/04/23 12:48 Troponin T 120 Minute 11.08 ng/L (0-15) 02/04/23 14:50 Delta Troponin T -0.92 ABS# (0-10) L 02/04/23 14:50 Total Protein 6.5 g/dL (6.6-8.7) L 02/04/23 12:48 Albumin 4.5 g/dL (3.5-5.2) 02/04/23 12:48 Globulin 2.0 g/dL (1.3-4.6) 02/04/23 12:48 All radiology interpretation(s) finalized by discharge EKG Data EKG 1: Interpretation: Sinus rhythm, rate of 78, normal axis, normal intervals, normal QRS, no STEMI. Discharge Plan Discharge Patient Disposition: Home Clinical Impression: Atypical chest pain Condition: Stable Prescriptions: No Action dicyclomine 10 mg capsule 10 mg PO QID PRN (Reason: Spasms) gabapentin 100 mg capsule 100 mg PO TID hydrochlorothiazide 12.5 mg tablet 12.5 mg PO QAM simvastatin 20 mg tablet 20 mg PO BEDTIME metformin 500 mg tablet 500 mg PO BID ibuprofen 800 mg tablet 800 mg PO QID baclofen 20 mg tablet 20 mg PO QAM hyoscyamine sulfate 0.125 mg tablet 0.125 mg PO QID PRN (Reason: Abdominal Pain) diclofenac sodium 1 % gel 1 ea TOPICAL DAILY PRN (Reason: Pain) isosorbide mononitrate 30 mg tablet extended release 24 hr 30 mg PO QAM aspirin 81 mg tablet,delayed release (DR/EC) 81 mg PO QAM Discharge Orders: Discharge ED (Routine); Ordered 02/04/23 Ordered By: Zain Case Referrals: Cristiana Garcia FNP [Primary Care Provider] - Discharge Diet: Usual diet Discharge Activity: Resume usual activity Patient Instructions: Opioid Safety, Pain Management Activity Restrictions/Additional Instructions: Continue taking your usual home medications. Follow-up with your primary care physician to arrange for an outpatient stress test. Return if you develop chest pain that is persistent and lasts for over 30 minutes. 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
[2023-02-04 12:43] VITALS: BP 145/93; PULSE 71; RESP 21; O2SAT 94
[2023-02-04 13:11] VITALS: BP 145/93; PULSE 69; RESP 18; O2SAT 95
[2023-02-04 13:15] LABS: Basophils % 0.6 %; Eosinophils % 0.6 %; Hematocrit 36.3 % (37-53); Lymphocytes # 2.4 10^3/uL (0.8-4.8); Lymphocytes % 35.5 %; Mean Corpuscular HGB Conc 33.9 g/dL (30-55); Mean Corpuscular Hemoglobin 31.3 pg (27-33); Mean Corpuscular Volume 92.4 fl (82-101); Mean Platelet Volume 11.6 fL (7.4-10.4); Monocytes # 0.4 10^3/uL (0.2-0.9); Monocytes % 5.4 %; Neutrophils # 3.81 10^3/uL (1.8-7.7); Neutrophils % 57.4 %; Nucleated Red Blood Cells % 0 %; Platelet Count 154 10^3/cmm (157-399); Red Blood Count 3.93 10^6/uL (3.85-5.65); Red Cell Distribution Width 13.2 % (12.1-15.1); White Blood Count 6.64 10^3/uL (3.29-11.43)
[2023-02-04 13:40] LABS: Alanine Aminotransferase 31 U/L (0-41); Albumin Level 4.5 g/dL (3.5-5.2); Alkaline Phosphatase 71 U/L (40-130); Anion Gap 15.4 (5-19); Aspartate Amino Transferase 21 U/L (0-40); Blood Urea Nitrogen 20 mg/dL (8-23); Carbon Dioxide 26 mmol/L (22-29); Chloride 103 mmol/L (98-107); Glomerular Filtration Rate 83.9 mL/min (90-130); Glucose 217 mg/dL (65-115); Osmolality Calculated 301 mOsm/kg (285-295); Potassium 3.4 mmol/L (3.5-5.1); Sodium 141 mmol/L (136-145); Total Bilirubin 0.4 mg/dL (0.15-1.2); Total Protein 6.5 g/dL (6.6-8.7)
[2023-02-04 13:42] LABS: Troponin(5th) Baseline 12 ng/L (0-15)
[2023-02-04 14:44] VITALS: BP 145/93; PULSE 60; RESP 18; O2SAT 94
[2023-02-04 15:13] VITALS: BP 145/93; PULSE 59; RESP 18; O2SAT 94
[2023-02-04 15:49] LABS: Troponin 5 2HR 11.08 ng/L (0-15); Troponin 5 2HR Delta -0.92 ABS# (0-10)
[2023-02-04 16:30] VITALS: BP 145/93; PULSE 59; RESP 21; O2SAT 95
== END 2023-02-04 16:43 | disposition home or self-care (01) ==
PROVIDERS: Emergency Provider Family Medicine; PCP Nurse Practitioner Family
DX: R07.89 Other chest pain (principal); Z79.82 Long term (current) use of aspirin; Z79.84 Long term (current) use of oral hypoglycemic drugs
CPT/HCPCS: 36415; 71045; 80053; 84484; 85025; 93005; 99285

== ENCOUNTER → 2023-03-08 13:09 | Outpatient (BNVA) | payer MEDICARE, MEDICAID, SELFPAY | PROVIDERS: PCP Nurse Practitioner Family; Referring Provider Registered Nurse; Visit Provider Internal Medicine | DX: I20.9 Angina pectoris, unspecified (principal); R07.9 Chest pain, unspecified; E11.9 Type 2 diabetes mellitus without complications; Z79.84 Long term (current) use of oral hypoglycemic drugs; I10 Essential (primary) hypertension | CPT/HCPCS: 99204 ==

== ENCOUNTER 2023-03-19 08:15 | Outpatient (CLI) | payer MEDICARE, MEDICAID, SELFPAY ==
--- NOTE | 2023-03-19 | ECG_ITS ---
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 Interpretive Statements NAME OF STUDY: LEXISCAN SESTAMIBI STRESS TEST INDICATION: Chest Pain/sob PROCEDURE: At the baseline, the blood pressure was 147 over 99 mm with a heart rate of 76 beats per min. The electrocardiogram showed sinus rhythm,normal axis. Normal St and T's. ??? The Lexiscan was infused over a period of 20 seconds. A total of 0.4 milligrams of Lexiscan was infused. The stress phase was continued for a total of 5 minutes. Heart rate at the end of the stress phase was 92 bpm with a blood pressure of 153 over 91 mm Hg. The EKG at the peak infusion revealed sinus rhythm with no significant ST-T wave changes. ??? Sestamibi was injected 20 seconds after the Lexiscan infusion. ??? Blood pressure at the end of the recovery phase was 155/92 mm Hg with a heart rate of 92 beats per minute. ??? CONCLUSION: 1. No significant EKG changes with the LexiScan infusion. 2. No LexiScan induced chest pain or cardiac arrhythmia. 3. Normal blood pressure and heart rate response. 4. Sestamibi/sestamibi perfusion scan pending; see separate report. Electronically Signed On 03-23-2023 15:57:27 PELLETISING EXTRUDER OPERATOR by Zoey Koch M.D. [id number]
--- NOTE | 2023-03-19 08:45 | USCV_ITS ---
Peewee Phillips Age: 67 Gender: M : 1955 Exam Date: 03/19/2023 09:02 Ordering Phys: Will Abernathy M.D ([email or web address]) Technologist: [facility] Exam Location: [facility] [place] Indication: CHEST PAIN AND SHORTNESS OF BREATH BP: 150 / 80 HR: 74 Rhythm: Sinus Technical Quality: Adequate MEASUREMENTS (Male / Female) Normal Values 2D ECHO LVOT Diameter 2.0 cm LV Ejection Fraction MOD 2C 58.9 % LV Ejection Fraction 2C AL 62.3 % LA Diameter 3.0 cm LA Width 2.6 cm LA Height 3.2 cm RA Width 1.7 cm RA Height 3.6 cm Aorta at Sinotubular Diameter 2.9 cm M-MODE Aortic Annulus Diameter 3.8 cm LA Ao Ratio MM 0.8 MV E Point Septal Separation 0.3 cm DOPPLER AV Peak Velocity 94.0 cm/s LVOT Peak Velocity 96.0 cm/s AV Area Cont Eq vti 3.3 cm squared AV Area Cont Eq pk 3.3 cm squared MV Peak Velocity 80.0 cm/s MV Area PHT 3.3 cm squared Mitral E to A Ratio 0.8 MV E' Velocity 32.5 cm/s Mitral E to MV E' Ratio 10.7 Mitral E to LV E' Lateral Ratio 10.3 Mitral E to LV E' Septal Ratio 11.3 TR Peak Velocity 109.4 cm/s TR Peak Gradient 4.8 mmHg TR Mean Velocity 85.9 cm/s TR Mean Gradient 3.1 mmHg TR Velocity Time Integral 25.4 cm TV Peak E Velocity 56.0 cm/s PV Peak Velocity 77.0 cm/s RV Acceleration Time 0.1 s RV Ejection Time 0.3 s RV AcT/ET 0.4 FINDINGS Left Ventricle Normal left ventricular size and systolic function, EF 62 %. No regional wall motion abnormalities. Grade I/IV diastolic dysfunction (abnormal relaxation filling pattern), normal to mildly elevated filling pressures. Right Ventricle Normal right ventricular size and systolic function. Right Atrium The right atrium is normal in size. Left Atrium The left atrium is normal in size. Mitral Valve No gross abnormalities noted . Aortic Valve No gross abnormalities noted . Tricuspid Valve No gross abnormalities noted . Pulmonic Valve No gross abnormalities noted . Pericardium Normal pericardium without effusion. Aorta Normal ascending aorta dimension. IVC Inferior vena cava not visualized. CONCLUSIONS Normal left ventricular size and systolic function, EF 62 %. No regional wall motion abnormalities. Grade I/IV diastolic dysfunction (abnormal relaxation filling pattern), normal to mildly elevated filling pressures. No gross valvular abnormalities noted. Normal cardiac chamber sizes. There is no pericardial effusion. There are no intracardiac masses. No similar previous studies are available for comparison Dr Herrera Mcdaniel MD FACC (Electronically Signed) Final Date: 20 March 2023 14:41 S
[2023-03-19 09:53] VITALS: BMI 35.2
--- NOTE | 2023-03-19 09:56 | NMCV_ITS ---
NM charu perf SPECT r/s* [id number] Peewee Phillips Age: 67 Gender: M : 1955 Exam Date: 03/19/2023 10:16 Ordering Phys: Will Abernathy M.D ([email or web address]) Technologist: PARAM West Exam Location: [facility] Indications: CHEST PAIN, SHORTNESS OF BREATH STRESS TEST Please [facility] for [facility] IMAGE PROTOCOL Rest/Stress 1 Lexiscan Day Radiopharmaceutical Dose (mCi) Administration Site Administered by Rest: Tc-99m 10.8 IV PARAM Ramirez Sestamibi Stress:Tc-99m 32.7 IV PARAM Ramirez Sestamibi Rest: 19-Mar-2023 60 Discovery 630 Stress: 19-Mar-2023 30 Discovery 630 0.4mg Lexiscan. Images obtained in supine and prone position. SPECT RESULTS Technical Quality: Excellent Raw Data Analysis: Normal Image Corrections: No attenuation or motion correction applied Summed Stress Score: 3 Summed Rest Score: 0 Summed Difference Score: 3 PERFUSION FINDINGS SPECT images demonstrate homogeneous tracer distribution throughout the myocardium on prone stress images. Some decreased tracer uptake on basal to mid inferolateral aguirre on supine stress images. FUNCTIONAL RESULTS (calculated via Gated SPECT) Stress Image LV EF (%): 69 Stress EDV (mL):78 TID: 0.79 Stress ESV (mL):24 FUNCTIONAL FINDINGS: The left ventricle is normal in size. Transient Ischemia Dilatation of 0.79. The left ventricular ejection fraction is normal with a value of 69%. There is normal left ventricular wall thickening. Normal end diastolic and end systolic volumes. IMPRESSIONS 1. Myocardial perfusion imaging is normal. Attenuation artifact noted on basal to mid inferolateral aguirre. 2. Overall left ventricular systolic function is normal without regional wall motion abnormalities, LVEF=69%. 3. EKG portion of the study will be reported separately. 4. Scan indicates low risk for cardiac events. Zoey Koch MD (Electronically Signed) Final Date: 22 March 2023 03:36 S
[2023-03-19] MEDS: regadenoson 0.4 Mg/5 ml Syringe IVP (10:52)
[2023-03-19 11:09] VITALS: BP 155/92; PULSE 90
== END 2023-03-19 08:16 | disposition home or self-care (01) ==
LOC: RAD 08:15 → CDL 08:45
PROVIDERS: PCP Nurse Practitioner Family; Visit Provider Internal Medicine
DX: R06.02 Shortness of breath (principal); R07.9 Chest pain, unspecified
CPT/HCPCS: 36415; 78452; 93017; 93306; 96374; A9500; J2785

== ENCOUNTER → 2023-05-10 14:15 | Outpatient (BNVA) | payer MEDICARE, MEDICAID, SELFPAY | PROVIDERS: PCP Nurse Practitioner Family; Visit Provider Internal Medicine | DX: E11.9 Type 2 diabetes mellitus without complications (principal); Z79.84 Long term (current) use of oral hypoglycemic drugs; I10 Essential (primary) hypertension; R07.89 Other chest pain | CPT/HCPCS: 99214 ==

== ENCOUNTER → 2023-05-18 09:26 | Outpatient (BNVA) | payer MEDICARE, MEDICAID, SELFPAY | PROVIDERS: PCP Nurse Practitioner Family; Visit Provider Anesthesiology Pain Medicine | DX: M51.16 Intervertebral disc disorders with radiculopathy, lumbar region; M47.816 Spondylosis without myelopathy or radiculopathy, lumbar region | CPT/HCPCS: 99213 ==

== ENCOUNTER → 2023-06-09 10:19 | Outpatient (BNVA) | payer MEDICARE, MEDICAID, SELFPAY | PROVIDERS: PCP Nurse Practitioner Family; Visit Provider Nurse Practitioner Family | DX: Z87.898 Personal history of other specified conditions (principal) | CPT/HCPCS: 99213 ==

== ENCOUNTER → 2023-06-25 10:34 | Outpatient (BNVA) | payer MEDICARE, MEDICAID, SELFPAY | PROVIDERS: PCP Nurse Practitioner Family; Referring Provider Family Medicine; Visit Provider Orthopaedic Surgery | DX: M54.50 Low back pain, unspecified; G89.29 Other chronic pain | CPT/HCPCS: 72100; 99204 ==

== ENCOUNTER → 2023-07-23 09:43 | Outpatient (BNVA) | payer MEDICARE, MEDICAID, SELFPAY | PROVIDERS: PCP Nurse Practitioner Family; Visit Provider Nurse Practitioner Family | DX: R06.02 Shortness of breath (principal) | CPT/HCPCS: 99214 ==

== ENCOUNTER → 2023-08-31 07:37 | Outpatient (BNVA) | payer MEDICARE, MEDICAID, SELFPAY | PROVIDERS: PCP Nurse Practitioner Family; Visit Provider Nurse Practitioner Family | DX: I10 Essential (primary) hypertension (principal); R06.09 Other forms of dyspnea | CPT/HCPCS: 99214 ==

== ENCOUNTER → 2023-09-21 13:17 | Outpatient (BNVA) | payer MEDICARE, MEDICAID, SELFPAY | PROVIDERS: PCP Nurse Practitioner Family; Visit Provider Orthopaedic Surgery | DX: M51.16 Intervertebral disc disorders with radiculopathy, lumbar region (principal); M54.50 Low back pain, unspecified; G89.29 Other chronic pain | CPT/HCPCS: 72110; 99213 ==

== ENCOUNTER → 2023-10-06 09:47 | Outpatient (BNVA) | payer MEDICARE, MEDICAID, SELFPAY | PROVIDERS: PCP Nurse Practitioner Family; Visit Provider Anesthesiology Pain Medicine | DX: M51.16 Intervertebral disc disorders with radiculopathy, lumbar region; M47.816 Spondylosis without myelopathy or radiculopathy, lumbar region | CPT/HCPCS: 99213 ==

== ENCOUNTER 2023-11-16 11:18 | Outpatient (CLI) | payer MEDICARE, MEDICAID, SELFPAY | END 2023-11-16 11:19 | disposition home or self-care (01) | LOC: SPT 11:18 | PROVIDERS: PCP Nurse Practitioner Family; Visit Provider Orthopaedic Surgery | DX: Z46.89 Encounter for fitting and adjustment of other specified devices (principal); M54.59 Other low back pain | CPT/HCPCS: 97760; L0637 ==

== ENCOUNTER → 2023-12-07 09:16 | Outpatient (BNVA) | payer MEDICARE, MEDICAID, SELFPAY | PROVIDERS: PCP Nurse Practitioner Family; Visit Provider Nurse Practitioner Family | DX: I10 Essential (primary) hypertension (principal) | CPT/HCPCS: 99213 ==

== ENCOUNTER → 2023-12-28 09:48 | Outpatient (BNVA) | payer MEDICARE, MEDICAID, SELFPAY | PROVIDERS: PCP Nurse Practitioner Family; Visit Provider Nurse Practitioner Family | DX: R07.9 Chest pain, unspecified (principal) | CPT/HCPCS: 93005; 99214 ==

== ENCOUNTER → 2024-03-21 10:49 | Outpatient (BNVA) | payer MEDICARE, MEDICAID, SELFPAY | PROVIDERS: PCP Registered Nurse; Visit Provider Orthopaedic Surgery | DX: M54.50 Low back pain, unspecified (principal); G89.29 Other chronic pain | CPT/HCPCS: 99213 ==

== ENCOUNTER 2024-05-03 06:30 | Outpatient (RCR) | payer MEDICARE, MEDICAID, SELFPAY | END 2024-06-02 23:59 | disposition home or self-care (01) | LOC: SPT 06:30 | PROVIDERS: Visit Provider Nurse Practitioner Family | DX: M51.16 Intervertebral disc disorders with radiculopathy, lumbar region (principal) | CPT/HCPCS: 97162 ==

== ENCOUNTER → 2024-05-15 14:35 | Outpatient (BNVA) | payer MEDICARE, MEDICAID, SELFPAY | PROVIDERS: Visit Provider Anesthesiology Pain Medicine | DX: M51.16 Intervertebral disc disorders with radiculopathy, lumbar region; M47.816 Spondylosis without myelopathy or radiculopathy, lumbar region | CPT/HCPCS: 99214 ==

== ENCOUNTER → 2024-05-22 10:14 | Outpatient (BNVA) | payer MEDICARE, MEDICAID, SELFPAY | PROVIDERS: Visit Provider Nurse Practitioner | DX: M17.11 Unilateral primary osteoarthritis, right knee | CPT/HCPCS: 73560; 73565; 99204 ==

== ENCOUNTER → 2024-08-28 08:13 | Outpatient (BNVA) | payer MEDICARE, MEDICAID, SELFPAY | PROVIDERS: Visit Provider Anesthesiology Pain Medicine | DX: M54.9 Dorsalgia, unspecified (principal); M51.16 Intervertebral disc disorders with radiculopathy, lumbar region; M47.26 Other spondylosis with radiculopathy, lumbar region | CPT/HCPCS: 99214 ==

== ENCOUNTER → 2025-01-03 13:44 | Outpatient (BNVA) | payer MEDICAID, SELFPAY | PROVIDERS: Visit Provider Internal Medicine | DX: I10 Essential (primary) hypertension (principal); R07.9 Chest pain, unspecified | CPT/HCPCS: 99213 ==

== ENCOUNTER → 2025-02-19 08:53 | Outpatient (BNVA) | payer MEDICAID, SELFPAY | PROVIDERS: Visit Provider Anesthesiology Pain Medicine | DX: M47.26 Other spondylosis with radiculopathy, lumbar region (principal); M51.16 Intervertebral disc disorders with radiculopathy, lumbar region | CPT/HCPCS: 99214 ==